=== PATIENT | female | born 1935 | race Hispanic/Latino ===

== ENCOUNTER → 2019-10-15 | Day surgery (SDC) | payer MEDICARE ==
[2019-10-12 13:59] LABS: BASOPHILS # (AUTO) 0.1 (0.0-0.1); BASOPHILS % 0.4 % (0.0-1.0); EOSINOPHILS # (AUTO) 0.1 (0.0-0.4); EOSINOPHILS % 0.5 % (0.0-6.0); HEMATOCRIT 34.2 % (34.2-44.1); LYMPHOCYTES # (AUTO) 1.6 (1.0-3.2); LYMPHOCYTES % 11.4 % (18.0-39.1); MEAN CORPUSCULAR HEMOGLOBIN 29.3 pg (28-32); MEAN CORPUSCULAR HGB CONC 32.2 g/dL (31-35); MONOCYTES # (AUTO) 0.5 (0.2-0.8); MONOCYTES % 3.9 % (4.4-11.3); NEUTROPHILS # (AUTO) 11.5 (2.1-6.9); NEUTROPHILS % 83.4 % (38.7-80.0); PLATELET COUNT 241 x10e3/uL (140-360); RED BLOOD COUNT 3.76 x10e6/uL (3.6-5.1); RED CELL DISTRIBUTION WIDTH 13.8 % (11.7-14.4)
[~2019-10-15] MED LIST: AMLODIPINE BESYL5 MG PO; CALCITRIOL0.25 MCG PO; CALCIUM CARBON500 MG PO; IOPAMIDOL 370 MG/ML 200 ML INFUS..BTL INJ ONE; LIDOCAINE HCL 2% LOCAL INJ 5 ML SDV VIAL INJ ONE; MONTELUKAST SOD10 MG PO; PROPOFOL IV EMULSION 10 MG/ML 20 ML VIAL ONE; SODIUM CHLORIDE 0.9% 50ML 50 ML ONE; SYNTHROID100 MCG PO
--- OUTSIDE RECORDS SUMMARY | 2019-10-15 08:54 | XMS REPORT ---
Author [facility] Address Unknown Phone Unavailable Care Team Providers Care Crayon Grader Name Role Phone Unavailable Unavailable Payers Payer Name Policy Type Policy Number Effective Date Expiration Date Problems This patient has no known problems. Allergies, Adverse Reactions, Alerts Allergy Name Allergy Type Status Severity Reaction(s) Onset Date Inactive Date Treating Clinician Comments No Known Allergies DA Active U 2019-06-11 00:00:00 No Known Allergies DA Active U 2016-11-01 00:00:00 No Known Contrast Allergies DA Active U 2007-05-26 00:00:00 No Known Drug Allergies DA Active U 2007-05-26 00:00:00 No Known Food Allergies DA Active U 2007-05-26 00:00:00 No Known Other Allergies DA Active U 2007-05-26 00:00:00 No Known Drug Intolerances DA Active U 2007-05-24 00:00:00 Medications This patient has no known medications. Results Test Description Test Time Test Comments Text Results Atomic Results Result Comments CBC W/AUTO DIFF 2019-06-13 12:25:00 WHITE BLOOD CELL (test code=WBC) 11.3 K/mm3 4.5-12.5 RED BLOOD CELL (test code=RBC) 3.33 mill/mm3 3.7-5.2 HEMOGLOBIN (test code=HGB) 10.1 gram/dL 11.5-15.5 HEMATOCRIT (test code=HCT) 31.3 % 36.0-46.0 MEAN CELL VOLUME (test code=MCV) 94.0 fL 80-98 MEAN CELL HGB (test code=MCH) 30.3 picogram 27.0-33.0 MEAN CELL HGB CONCETRATION (test code=MCHC) 32.3 gram/dL 33.0-36.0 RED CELL DISTRIBUTION WIDTH (test code=RDW) 12.3 % 11.6-16.2 RED CELL DISTRIBUTION WIDTH SD (test code=RDW-SD) 42.3 fL 37.0-51.0 PLATELET COUNT (test code=PLT) 280 K/mm3 150-450 MEAN PLATELET VOLUME (test code=MPV) 10.0 fL 6.7-11.0 NEUTROPHIL % (test code=NT%) 89.5 % 39.0-69.0 IMMATURE GRANULOCYTE % (test code=IG%) 0.9 % 0.0-5.0 LYMPHOCYTE % (test code=LY%) 7.1 % 25.0-55.0 MONOCYTE % (test code=MO%) 2.3 % 0.0-10.0 EOSINOPHIL % (test code=EO%) 0.0 % 0.0-5.0 BASOPHIL % (test code=BA%) 0.2 % 0.0-1.0 NUCLEATED RBC % (test code=NRBC%) 0.0 % 0-0 NEUTROPHIL # (test code=NT#) 10.14 K/mm3 1.8-7.7 IMMATURE GRANULOCYTE # (test code=IG#) 0.10 x10 3/uL 0-0.03 LYMPHOCYTE # (test code=LY#) 0.81 K/mm3 1.0-5.0 MONOCYTE # (test code=MO#) 0.26 K/mm3 0-0.8 EOSINOPHIL # (test code=EO#) 0.00 K/mm3 0.0-0.5 BASOPHIL # (test code=BA#) 0.02 K/mm3 0.0-0.2 NUCLEATED RBC # (test code=NRBC#) 0.00 K/mm3 0.0-0.1 URINALYSIS [id number] 08:02:00* Test Item Value Reference Range Comments UA COLOR (test code=COLU) Light-Yellow YELLOW UA APPEARANCE (test code=APPU) CLEAR CLEAR UA GLUCOSE DIPSTICK (test code=DGLUU) NEGATIVE mg/dL NEGATIVE UA BILIRUBIN DIPSTICK (test code=BILU) NEGATIVE mg/dL NEGATIVE UA KETONE DIPSTICK (test code=KETU) NEGATIVE mg/dL NEGATIVE UA SPECIFIC GRAVITY (test code=SGU) 1.020 1.001-1.035 UA BLOOD DIPSTICK (test code=JIM) 0.03 mg/dL (Trace) mg/dL NEGATIVE UA PH DIPSTICK (test code=ANDREE) 5.5 5.0-8.0 UA PROTEIN DIPSTICK (test code=PROU) 10 (Trace) mg/dL NEGATIVE UA UROBILINIOGEN DIPSTICK (test code=URO) Normal mg/dL NEGATIVE UA NITRITE DIPSTICK (test code=RACH) NEGATIVE NEGATIVE UA LEUKOCYTE ESTERASE W REFLEX (test code=LEUUR) NEGATIVE Alisia/uL NEGATIVE UA WBC (test code=WBCU) 0-5 per HPF 0-5 UA RBC (test code=RBCU) 3-5 #/HPF 0-5 UA EPITHELIAL CELLS (test code=EPIU) FEW per HPF FEW UA BACTERIA (test code=BACU) NONE SEEN #/HPF NONE UA HYALINE CAST (test code=HYALU) 0-2 #/LPF 0-5 UA MUCUS (test code=MUCU) FEW #/LPF FEW Urine Source? Clean CatchURINALYSIS [id number] 08:01:00* Test Item Value Reference Range Comments UA COLOR (test code=COLU) Light-Yellow YELLOW UA APPEARANCE (test code=APPU) CLEAR CLEAR UA GLUCOSE DIPSTICK (test code=DGLUU) NEGATIVE mg/dL NEGATIVE UA BILIRUBIN DIPSTICK (test code=BILU) NEGATIVE mg/dL NEGATIVE UA KETONE DIPSTICK (test code=KETU) NEGATIVE mg/dL NEGATIVE UA SPECIFIC GRAVITY (test code=SGU) 1.020 1.001-1.035 UA BLOOD DIPSTICK (test code=JIM) 0.03 mg/dL (Trace) mg/dL NEGATIVE UA PH DIPSTICK (test code=ANDREE) 5.5 5.0-8.0 UA PROTEIN DIPSTICK (test code=PROU) 10 (Trace) mg/dL NEGATIVE UA UROBILINIOGEN DIPSTICK (test code=URO) Normal mg/dL NEGATIVE UA NITRITE DIPSTICK (test code=RACH) NEGATIVE NEGATIVE UA LEUKOCYTE ESTERASE W REFLEX (test code=LEUUR) NEGATIVE Alisia/uL NEGATIVE UA WBC (test code=WBCU) per HPF 0-5 UA RBC (test code=RBCU) per HPF 0-5 UA EPITHELIAL CELLS (test code=EPIU) per HPF Few UA BACTERIA (test code=BACU) per HPF NONE Urine Source? Clean Catch- CT CHEST [id number] 20:14:00 Name: PEPE CAMPOS [facility] : 1935 Age/S: 84 / F [address] [facility] Unit #: [id number] Loc: [place] [address] Phys: Jayson Garcia MD Acct: [id number] Di s Date: 06/13/2019 Status: DIS IN PHONE #: Exam Date: 06/11/2019 1840 FAX #: Reason: haynes EXAMS: CPT CODE: [id number] CT CHEST W/CO NTRAST 24655 REASON FOR EXAM: haynes EXAM ORDER DATE: 06/11/2019 4:58 PM Ordering M.D.: Jayson Gonzalez MD PROCEDURE: - CT CHEST W/CONTRAST Comparison:CT angiogram of the chest earlier today Axial CT images of the chest were obtained with IV contrast. Reconstructed sagittal and coronal images of the chest were provided for interpretation. Dose reduct ion techniques were applied. FINDINGS: Motion from patient respiration degrades images. Visualized neck: Thyroid gland is not clearly visualized. Airways, Lungs and Pleura: There are tree-in- bud opacities scattered throughout both lungs and there are areas of bron chial wall thickening in the bilateral lower lobes. There is also subsegme ntal atelectasis versus parenchymal scarring in the middle lobe and lingul a. These findings appear similar to the previous study. Left lower lobe no dules appear similar to the previous examination. No pleural effusion or pneumothorax. There is fluid versus mucous in the right mainstem bron chus. Heart, great vessels, pulmonary vessels, mediastinum: Athero sclerotic disease is present in the thoracic aorta. No significant coronar y atherosclerosis. Pulmonary trunk and thoracic aorta are normal in caliber. Esophagus is markedly distended with fluid. There is also esophag eal wall thickening that is similar to the prior exam. Lymph nodes : No axillary or internal mammary adenopathy. Subcentimeter mediastinal ly mph nodes appear similar to the previous exam. No hilar adenopathy. Musculoskeletal/chest wall: Degenerative changes throughout the vi sualized spine appears similar to the prior exam Visualized upper abdomen: No acute findings. IMPRESSION: PAGE 1 Signed Report (CONTINUED) Name: PEPE MELTON [facility] : 1935 Age/ S: 84 / F [address] Unit #: [id number] Loc: [place] [address] Phys: Jayson Gonzalez MD Acct: [id number] Dis Date: 019 Status: DIS IN PHONE #: [phone] E xam Date: 06/11/2019 1840 FAX #: [phone] Reason: haynes EXAMS: CPT CODE: [id number] CT CHEST W/CONTRAST 77473 <Continued> No significant change from prior exam. Tree-in-bud opacities throughout both lungs may represent an infectious process is seen with fungal infections, mycobacteria, or viral infections. Additionally given the distention of the esophagus with fluid, aspiration cannot be excluded, particularly given the presence of mucus within the right mainstem bronchus. There is bronchial wall thickening that is most pronounced in the lower lobes and may be secondary to an infectious process or may be secondary to an inflammatory process such as from aspiration. Left lower lobe nodules appear similar to the prior exam. As stated on the prior exam, follow-up PET scan versus a 3 month follow-up CT scan may be considered to assess for changes. The thyroid gland is not clearly visualized. Correlate with patient history for possible thyroidectomy. Location: [facility] at 2014 Reported and signed by: Andrzej Cortes MD CC: Jayson Gonzalez MD; Alec Haynes Technologist:Viji Helms RT(R) CTDI: DLP: Trnscb Date/Time: 06/11/2019 (2013) [email or web address] Orig Print D/T: S: 06/11/2019 (2016) PAGE 2 Signed Report - CT CHEST [id number] 20:14:00 Name: PEPE VEE [facility] : 1935 Age/S: 84 / F [address] Unit #: [id number] Loc: [place] [address] Phys: Jayson Garcia MD Acct: [id number] Di s Date: Status: ADM IN PHONE #: Exam Date: 06/11/2019 1840 FAX #: [phone] Reason: haynes EXAMS: CPT CODE: [id number] CT CHEST W/CO NTRAST 81547 REASON FOR EXAM: haynes EXAM ORDER DATE: 06/11/2019 4:58 PM Ordering M.D.: Jayson Gonzalez MD PROCEDURE: - CT CHEST W/CONTRAST Comparison:CT angiogram of the chest earlier today Axial CT images of the chest were obtained with IV contrast. Reconstructed sagittal and coronal images of the chest were provided for interpretation. Dose reduct ion techniques were applied. FINDINGS: Motion from patient respiration degrades images. Visualized neck: Thyroid gland is not clearly visualized. Airways, Lungs and Pleura: There are tree-in- bud opacities scattered throughout both lungs and there are areas of bron chial wall thickening in the bilateral lower lobes. There is also subsegme ntal atelectasis versus parenchymal scarring in the middle lobe and lingul a. These findings appear similar to the previous study. Left lower lobe no dules appear similar to the previous examination. No pleural effusion or pneumothorax. There is fluid versus mucous in the right mainstem bron chus. Heart, great vessels, pulmonary vessels, mediastinum: Athero sclerotic disease is present in the thoracic aorta. No significant coronar y atherosclerosis. Pulmonary trunk and thoracic aorta are normal in caliber. Esophagus is markedly distended with fluid. There is also esophag eal wall thickening that is similar to the prior exam. Lymph nodes : No axillary or internal mammary adenopathy. Subcentimeter mediastinal ly mph nodes appear similar to the previous exam. No hilar adenopathy. Musculoskeletal/chest wall: Degenerative changes throughout the vi sualized spine appears similar to the prior exam Visualized upper abdomen: No acute findings. IMPRESSION: PAGE 1 Signed Report (CONTINUED) Name: PEPE STEINBERG [facility] : 1935 Age/ S: 84 / F [address] [facility] Unit #: [id number] Loc: [place] [address] Phys: Jayson Gonzalez MD Acct: [id number] Dis Date: Status: ADM IN PHONE #: [phone] Exam Date: 06/11/2019 1840 FAX #: [phone] Reason: haynes EXAMS: CPT CODE: [id number] CT CHEST W/CONTRAST 00571 <Continued> No significant change from prior exam. Tree-in-bud opacities throughout both lungs may represent an infectious process is seen with fungal infections, mycobacteria, or viral infections. Additionally given the distention of the esophagus with fluid, aspiration cannot be excluded, particularly given the presence of mucus within the right mainstem bronchus. There is bronchial wall thickening that is most pronounced in the lower lobes and may be secondary to an infectious process or may be secondary to an inflammatory process such as from aspiration. Left lower lobe nodules appear similar to the prior exam. As stated on the prior exam, follow-up PET scan versus a 3 month follow-up CT scan may be considered to assess for changes. The thyroid gland is not clearly visualized. Correlate with patient history for possible thyroidectomy. Location: [facility] at 2014 Reported and signed by: Andrzej Cortes MD CC: Jayson Gonzalez MD; Alec Haynes Technologist:Viji Helms RT(R) CTDI: DLP: Trnscb Date/Time: 06/11/2019 (2013) [email or web address] Orig Print D/T: S: 06/11/2019 (2016) PAGE 2 Signed Report - CTA [id number] 09:47:00 Name: PEPE CAMPOS [facility] : 1935 Age/S: 84 / F [address] [facility] Unit #: [id number] Loc: [place] [address] Phys: Nyasia Syed MD Acct: [id number] Dis Date: 06/13/2019 Status: DIS IN PHONE #: [phone] Exam Date: 06/11/2019921 FAX #: [phone] Reason: sob, cp EXAMS: CPT CODE: [id number] CTA CHEST 46939 HISTORY: Shortness of breath and chest pain. COMPARISON: None available. CTA CHEST: 100 mL of Isovue-370. 3- D images. Automated exposure control. No pulmonary embolism. Unremarkable aorta with atherosclerotic change. Well-opacified SVC and the neck vasculature. Thyroid glands are not visible. Moderately dilated and moderately thickened esophageal wall with fluid distention of the distal half. The nondependent wall is measuring up to 5 mm. Correlate for esophagitis. No pathologic adenopathy. Cardiomegaly without pericardial effusion. Visualized upper abdomen is unremarkable. Subcutaneous tissues and the musculature are normal in appearance. No lytic or blastic lesions are noted within the bony skeleton. DJD. The lungs are clear of acute infiltrates, effusion or congestion. Scarring and subsegmental atelectasis in both upper lobes as well in the lingula and middle lobe. Noncalcified nodule measuring 8.3 mm in the right lower lobe in subpleural location anterolaterally. Follow-up with PET scan as clinically indicated. Vague reticular infiltrates in the apical segment of both lower lobes. No bronchiectasis, honeycombing or fibrosis. IMPRESSION: Circumferential wall thickening of the entire esophagus which is dilated proximally and fluid-filled distally with wall thickness of the nondependent wall measured at 5 mm. Correlate for esophagitis. No pulmonary embolism with unremarkable aorta. No pathologic adenopathy. 8.3 mm left anterolateral left lower lobe subpleural lung base nodule. Follow-up with PET scan. Nonspecific reticular chronic-appearing infiltrates in both apical segment of the lower lobes. Scarring and dependent changes in the upper lobes and the right middle lobe and the lingula with slight loss of lung volume. at 0947 Reported and signed by: Nguyễn Chan M.D. PAGE 1 Signed Report (CONTINUED) Name: BEENAPEPE ESPINOZA [facility] : 1935 Age/S: 84 / F [address] [facility] Unit #: [id number] Loc: [facility] [place] [address] Phys: Nyasia Syed MD Acct: [id number] Dis Date: 06/13/2019 Status: DIS IN PHONE #: [phone] Exam Date: 06/11/2019921 FAX #: [phone] Reason: sob, cp EXAMS: CPT CODE: [id number] CTA CHEST 24796 <Continued> CC: Nyasia Syed MD Technologist:Pranay Abdul RT(R),(MR),(CT) CTDI: DLP: Trnscb Date/Time: 06/11/2019 (0947) [email or web address] Orig Print D/T: S: 06/11/2019 (0950) PAGE 2 Signed Report - CTA [id number] 09:47:00 Name: PEPE VEE [facility] : 1935 Age/S: 84 / F [address] [facility] Unit #: [id number] Loc: [place] [address] Phys: Nyasia Syed MD Acct: [id number] Dis Date: Status: REG ER PHONE #: [phone] Exam Date: 06/11/2019921 FAX #: [phone] Reason: sob, cp EXAMS: CPT CODE: [id number] CTA CHEST 41343 HISTORY: Shortness of breath and chest pain. COMPARISON: None available. CTA CHEST: 100 mL of Isovue-370. 3- D images. Automated exposure control. No pulmonary embolism. Unremarkable aorta with atherosclerotic change. Well-opacified SVC and the neck vasculature. Thyroid glands are not visible. Moderately dilated and moderately thickened esophageal wall with fluid distention of the distal half. The nondependent wall is measuring up to 5 mm. Correlate for esophagitis. No pathologic adenopathy. Cardiomegaly without pericardial effusion. Visualized upper abdomen is unremarkable. Subcutaneous tissues and the musculature are normal in appearance. No lytic or blastic lesions are noted within the bony skeleton. DJD. The lungs are clear of acute infiltrates, effusion or congestion. Scarring and subsegmental atelectasis in both upper lobes as well in the lingula and middle lobe. Noncalcified nodule measuring 8.3 mm in the right lower lobe in subpleural location anterolaterally. Follow-up with PET scan as clinically indicated. Vague reticular infiltrates in the apical segment of both lower lobes. No bronchiectasis, honeycombing or fibrosis. IMPRESSION: Circumferential wall thickening of the entire esophagus which is dilated proximally and fluid-filled distally with wall thickness of the nondependent wall measured at 5 mm. Correlate for esophagitis. No pulmonary embolism with unremarkable aorta. No pathologic adenopathy. 8.3 mm left anterolateral left lower lobe subpleural lung base nodule. Follow-up with PET scan. Nonspecific reticular chronic-appearing infiltrates in both apical segment of the lower lobes. Scarring and dependent changes in the upper lobes and the right middle lobe and the lingula with slight loss of lung volume. at 0947 Reported and signed by: Nguyễn Chan M.D. PAGE 1 Signed Report (CONTINUED) Name: PEPE STEINBERG [facility] : 1935 Age/ S: 84 / F [address] [facility] Unit #: [id number] Loc: [place] [address] Phys: Nyasia Syed MD Acct: [id number] Dis Date: Status: REG ER PHONE #: [phone] Exam Date: 06/11/2019921 FAX #: [phone] Reason: sob, cp EXAMS: CPT CODE: [id number] CTA CHEST 42314 <Continued> CC: Nyasia Syed MD Technologist:Pranay Abdul RT(R),(MR),(CT) CTDI: DLP: Trnscb Date/Time: 06/11/2019 (0947) [email or web address] Orig Print D/T: S: 06/11/2019 (4611) PAGE 2 Signed Report B-TYPE NATRIURETIC [id number] 08:38:00* Test Item Value Reference Range Comments B-TYPE NATRIURETIC PEPTIDE (test code=BNP) 51.26 pgram/mL 0-100 BASIC METABOLIC [id number] 07:43:00* Test Item Value Reference Range Comments SODIUM (test code=NA) 145 mmol/L 136-145 POTASSIUM (test code=K) 4.0 mmol/L 3.5-5.1 CHLORIDE (test code=CL) 107.0 mmol/L 98-107 CARBON DIOXIDE (test code=CO2) 31.0 mmol/L 21-32 ANION GAP (test code=GAP) 11.0 10-20 GLUCOSE (test code=GLU) 125 mg/dL 74-106 BLOOD UREA NITROGEN (test code=BUN) 24 mg/dL 7-18 GLOMERULAR FILTRATION RATE (test code=GFR) 53 mL/min >=60 Estimated GFR by using Modified MDRD formula.Chronic kidney disease is defined as either kidney damageor GFR <60 mL/min/1.73 m2 for >3 months. CREATININE (test code=CREAT) 1.00 mg/dL 0.55-1.02 Note change in reference range due to change in reagent. BUN/CREATININE RATIO (test code=BUN/CREA) 25.1 10-20 CALCIUM (test code=CA) 8.4 mg/dL 8.5-10.1 HEPATIC FUNCTION [id number] 07:43:00* Test Item Value Reference Range Comments TOTAL PROTEIN (test code=PROT) 10.0 gram/dL 6.4-8.2 ALBUMIN (test code=ALB) 4.0 g/dL 3.4-5.0 GLOBULIN (test code=GLOB) 6.0 gram/dL 2.7-4.2 ALBUMIN/GLOBULIN RATIO (test code=A/G) 0.7 0.75-1.50 BILIRUBIN TOTAL (test code=BILT) 0.40 mg/dL 0.0-1.0 BILIRUBIN DIRECT (test code=BILD) 0.13 mg/dL 0.0-0.20 SGOT/AST (test code=AST) 34 IUnit/L 15-37 SGPT/ALT (test code=ALT) 34 IUnit/L 12-78 ALKALINE PHOSPHATASE TOTAL (test code=ALKP) 136 IUnit/L 45-117 Note change in reference range due to change in reagent. [id number] 07:43:00* Test Item Value Reference Range Comments TROPONIN-I (test code=TROPI) <0.015 ng/mL 0-0.045 LACTIC [id number] 07:39:00* Test Item Value Reference Range Comments LACTIC ACID (test code=LACT) 0.9 mmol/L 0.4-1.9 - XR CHEST 1 [id number] 07:39:00 FAX: Ezequiel Son MD [phone] [place]: B St: DIS Name: PEPE ORTIZ [facility] : [birth year] Age/S: 84/F [address] Unit #: [id number] Loc: [address] [place] [address] Phys: Ezequiel Son MD Acct: [id number] Dis Date: 1900924 Status: DIS IN PHONE #: [phone] Exam Date: 06/11/2019722 FAX #: [phone] Reason: CODE SEPSIS EXAMS: CPT CODE: [id number] XR CHEST 1 V 23278 HISTORY: CODE SEPSIS TECHNIQUE: AP chest x-ray COMPARISON: None FINDINGS: No airspace consolidation or pleural effusion. Normal heart size. Atherosclerotic vascular calcification of the thoracic aorta. Thoracic spondylosis. IMPRESSION: No airspace cons olidation or pleural effusion. LOCATION: [facility] Reported and signed by: Corinne Guillory D.O. CC: Ezequiel Son MD Technologist: RT DAVID(Michael) Trnscrd Date/Time/By: 06/11/2019 (0739) : By: [email or web address] Orig Print D/T: S: 06/11/2019 (0742) PAGE 1 Signed Report - XR CHEST 1 [id number] 07:39:00 FAX: Ezequiel Son MD [phone] [place]: B St: REG Name: PEPE AVERY [facility] : [birth year] Age/S: 84/F [address] Unit #: [id number] Loc: [place] [address] Phys: Ezequiel Son MD Acct: [id number] Dis Date: Status: REG ER PHONE #: [phone] Exam Date: 06/11/2019722 FAX #: [phone] Reason: CODE SEPSIS EXAMS: CPT CODE: [id number] XR CHEST 1 V 78458 HISTORY: CODE SEPSIS TECHNIQUE: AP chest x-ray COMPARISON: None FINDINGS: No airspace consolidation or pleural effusion. Normal heart size. Atherosclerotic vascular calcification of the thoracic aorta. Thoracic spondylosis. IMPRESSION: No airspace cons olidation or pleural effusion. LOCATION: [facility] Reported and signed by: Corinne Guillory D.O. CC: Ezequiel Son MD Technologist: RT DAVID(Michael) Trnscrd Date/Time/By: 06/11/2019 (0739) : By: [email or web address] Orig Print D/T: S: 06/11/2019 (0742) PAGE 1 Signed Report BASIC METABOLIC [id number] 07:32:00* Test Item Value Reference Range Comments SODIUM (test code=NA) 145 mmol/L 136-145 POTASSIUM (test code=K) 4.0 mmol/L 3.5-5.1 CHLORIDE (test code=CL) 107.0 mmol/L 98-107 CARBON DIOXIDE (test code=CO2) mmol/L 21-32 ANION GAP (test code=GAP) 10-20 GLUCOSE (test code=GLU) mg/dL 74-106 BLOOD UREA NITROGEN (test code=BUN) mg/dL 7-18 GLOMERULAR FILTRATION RATE (test code=GFR) mL/min >=60 CREATININE (test code=CREAT) mg/dL 0.55-1.02 BUN/CREATININE RATIO (test code=BUN/CREA) 10-20 CALCIUM (test code=CA) mg/dL 8.5-10.1 HEPATIC FUNCTION [id number] 07:32:00* Test Item Value Reference Range Comments TOTAL PROTEIN (test code=PROT) gram/dL 6.4-8.2 ALBUMIN (test code=ALB) g/dL 3.4-5.0 GLOBULIN (test code=GLOB) gram/dL 2.7-4.2 ALBUMIN/GLOBULIN RATIO (test code=A/G) 0.75-1.50 BILIRUBIN TOTAL (test code=BILT) mg/dL 0.0-1.0 BILIRUBIN DIRECT (test code=BILD) mg/dL 0.0-0.20 SGOT/AST (test code=AST) IUnit/L 15-37 SGPT/ALT (test code=ALT) IUnit/L 12-78 ALKALINE PHOSPHATASE TOTAL (test code=ALKP) IUnit/L 45-117 [id number] 07:32:00* Test Item Value Reference Range Comments TROPONIN-I (test code=TROPI) ng/mL 0-0.045 CBC W/AUTO [id number] 07:27:00* Test Item Value Reference Range Comments WHITE BLOOD CELL (test code=WBC) 15.2 K/mm3 4.5-12.5 RED BLOOD CELL (test code=RBC) 4.11 mill/mm3 3.7-5.2 HEMOGLOBIN (test code=HGB) 12.3 gram/dL 11.5-15.5 HEMATOCRIT (test code=HCT) 39.2 % 36.0-46.0 MEAN CELL VOLUME (test code=MCV) 95.4 fL 80-98 MEAN CELL HGB (test code=MCH) 29.9 picogram 27.0-33.0 MEAN CELL HGB CONCETRATION (test code=MCHC) 31.4 gram/dL 33.0-36.0 RED CELL DISTRIBUTION WIDTH (test code=RDW) 12.5 % 11.6-16.2 RED CELL DISTRIBUTION WIDTH SD (test code=RDW-SD) 43.4 fL 37.0-51.0 PLATELET COUNT (test code=PLT) 326 K/mm3 150-450 MEAN PLATELET VOLUME (test code=MPV) 10.1 fL 6.7-11.0 NEUTROPHIL % (test code=NT%) 85.0 % 39.0-69.0 IMMATURE GRANULOCYTE % (test code=IG%) 0.4 % 0.0-5.0 LYMPHOCYTE % (test code=LY%) 8.5 % 25.0-55.0 MONOCYTE % (test code=MO%) 3.2 % 0.0-10.0 EOSINOPHIL % (test code=EO%) 2.4 % 0.0-5.0 BASOPHIL % (test code=BA%) 0.5 % 0.0-1.0 NUCLEATED RBC % (test code=NRBC%) 0.0 % 0-0 NEUTROPHIL # (test code=NT#) 12.96 K/mm3 1.8-7.7 IMMATURE GRANULOCYTE # (test code=IG#) 0.06 x10 3/uL 0-0.03 LYMPHOCYTE # (test code=LY#) 1.30 K/mm3 1.0-5.0 MONOCYTE # (test code=MO#) 0.49 K/mm3 0-0.8 EOSINOPHIL # (test code=EO#) 0.36 K/mm3 0.0-0.5 BASOPHIL # (test code=BA#) 0.07 K/mm3 0.0-0.2 NUCLEATED RBC # (test code=NRBC#) 0.00 K/mm3 0.0-0.1 CBC W/AUTO [id number] 07:24:00* Test Item Value Reference Range Comments WHITE BLOOD CELL (test code=WBC) K/mm3 4.5-12.5 RED BLOOD CELL (test code=RBC) mill/mm3 3.7-5.2 HEMOGLOBIN (test code=HGB) 12.3 gram/dL 11.5-15.5 HEMATOCRIT (test code=HCT) 39.2 % 36.0-46.0 MEAN CELL VOLUME (test code=MCV) fL 80-98 MEAN CELL HGB (test code=MCH) picogram 27.0-33.0 MEAN CELL HGB CONCETRATION (test code=MCHC) gram/dL 33.0-36.0 RED CELL DISTRIBUTION WIDTH (test code=RDW) % 11.6-16.2 RED CELL DISTRIBUTION WIDTH SD (test code=RDW-SD) fL 37.0-51.0 PLATELET COUNT (test code=PLT) K/mm3 150-450 MEAN PLATELET VOLUME (test code=MPV) fL 6.7-11.0 NEUTROPHIL % (test code=NT%) % 39.0-69.0 IMMATURE GRANULOCYTE % (test code=IG%) % 0.0-5.0 LYMPHOCYTE % (test code=LY%) % 25.0-55.0 MONOCYTE % (test code=MO%) % 0.0-10.0 EOSINOPHIL % (test code=EO%) % 0.0-5.0 BASOPHIL % (test code=BA%) % 0.0-1.0 NEUTROPHIL # (test code=NT#) K/mm3 1.8-7.7 LYMPHOCYTE # (test code=LY#) K/mm3 1.0-5.0 MONOCYTE # (test code=MO#) K/mm3 0-0.8 EOSINOPHIL # (test code=EO#) K/mm3 0.0-0.5 BASOPHIL # (test code=BA#) K/mm3 0.0-0.2
[2019-10-15 13:49] LABS: BLOOD UREA NITROGEN 21 mg/dL (7-26); BUN/CREATININE RATIO 28 (6-25); CREATININE, SERUM 0.74 mg/dL (0.57-1.11); EST GLOMERULAR FILTRATION RATE > 60 ML/MIN (60-)
[2019-10-15 14:35] VITALS: BP 128/76
--- NOTE | 2019-10-15 16:09 | Diagnostic Imaging Report ---
EXAM: CT Chest WITH intravenous contrast 10/15/2019 1:59 PM INDICATION: Abnormal EGD COMPARISON: None TECHNIQUE: Chest was scanned utilizing a multidetector helical scanner from the lung apex through the level of the adrenal glands after administration of IV contrast. Coronal and sagittal reformations were obtained. Routine protocol was performed. IV CONTRAST: 100mL Isovue 370 RADIATION DOSE: Total DLP: 792 mGy*cm. Dose modulation, iterative reconstruction, and/or weight based adjustment of the mA/kV was utilized to reduce the radiation dose to as low as reasonably achievable. COMPLICATIONS: None FINDINGS: LINES/ TUBES: None. LUNGS AND AIRWAYS: The central airways are patent. Scattered centrilobular and tree-in-bud nodules in the dependent portions of all lobes of the lung, for example at the dependent right upper lobe (series 4 image 71) and left upper lobe (series 4 image 105 may represent sequela of aspiration versus infection. 5 mm left lower lobe solid pulmonary nodule (series 4 image 179). 5 mm right lower lobe pulmonary nodule (series 4 image 153). PLEURA: The pleural spaces are clear. HEART AND MEDIASTINUM: The esophagus is dilated throughout its thoracic course and filled with fluid and debris. There is mild diffuse esophageal wall thickening. No definite obstructive lesion identified at the gastroesophageal junction. There is a tiny focus of air which appears to be extraluminal anterior to the esophagus (series 4, image 41). Thyroid gland not well visualized. No supraclavicular, mediastinal or axillary lymphadenopathy. Hilar lymphadenopathy measures up to 8 mm on the left and 7 mm on the right. The heart is not enlarged. No pericardial effusion. Scattered atherosclerotic calcifications of the aorta and proximal great vessels. Tracheobronchial calcifications. UPPER ABDOMEN: Diffuse hepatic steatosis. No focal liver lesion. No other acute findings. BONES: Mild diffuse osteopenia. No acute osseous injury. No suspicious lytic or blastic lesions. SOFT TISSUES: Unremarkable. IMPRESSION: Dilated esophagus filled with fluid and debris. Mild diffuse esophageal wall thickening. Tiny focus of air anterior and extraluminal to the esophagus. Given patient's history of recent EGD, perforation cannot be excluded. Scattered areas of centrilobular and tree-in-bud nodularity in the dependent portions of the lung may be retrievable to aspiration given the patient's increased aspiration risk with a fluid-filled dilated esophagus. Multiple 5 mm lung nodules. If the patient is low risk, no further follow-up imaging is masses area. If the patient is high risk, chest CT follow-up in 12 months is optional. Diffuse hepatic steatosis. Signed by: Geovanny Abbott MD on 10/15/2019 4:07 PM
== END | disposition home or self-care (01) ==
LOC: OR 08:39
PROVIDERS: ATTEND Internal Medicine
DX: R13.10 Dysphagia, unspecified (principal); E03.9 Hypothyroidism, unspecified; I10 Essential (primary) hypertension; D64.9 Anemia, unspecified; Z01.810 Encounter for preprocedural cardiovascular examination; Z01.812 Encounter for preprocedural laboratory examination; Z01.811 Encounter for preprocedural respiratory examination; Z01.818 Encounter for other preprocedural examination; R49.0 Dysphonia
CPT/HCPCS: 36415 ×2; 43200; 71260; 82565; 84520; 85025; 93005; J2001; J2704; Q9967; 43239